=== PATIENT | female | born 1960 | race Caucasian/White ===

== ENCOUNTER 2016-08-07 11:50 | Emergency (ER) | payer OTHER ==
--- NOTE | ~2016-08-07 | CT4 ---
[facility] A Service [facility] RADIOLOGY TEXT RESULTS PATIENT: KATIA CHAVEZ LOCATION: [facility] : 58 UNIT #: [id number] AGE: [address]: OLAMIDE OLIVA MD SEX: F ORDER DR: [id number] [place] [id number] MR#: [id number] Acc #: [id number] NAME: KATIA CHAVEZ : 1960 SEX: F STUDY DATE/TIME: 08/07/2016 12:58 UNIT: [facility] ROOM: [facility] STUDY DESCRIPTION: CT Abd and Pelv Wo Cont Attending Physician: Olamide Oliva M.D. Ordering Physician: Chan Quinones M.D. Primary Care Physician: Jyoti Moore M.D. MEDICAL IMAGING REPORT This report is preliminary unless electronic signature is present. EXAM CT abdomen and pelvis no contrast 08/08/2015 CLINICAL HISTORY Nausea and diarrhea for 3 days. PROCEDURE Axial unenhanced CT abdomen and pelvis with multiplanar reformats. This CT exam was performed with one or more of the following radiation dose reduction techniques: automatic exposure control, adjustment of mA and/or kV according to patient size, and iterative reconstruction. COMPARISON None. FINDINGS The lung bases are unremarkable. ABDOMEN: There is fatty infiltration of the liver and the gallbladder has been removed. The spleen and pancreas are normal. The kidneys and adrenal glands are normal and the aorta is normal in caliber. There is no nephro- or ureterolithiasis or hydronephrosis. There is no bowel or biliary obstruction. PELVIS: There is no pelvic mass. There is limited diverticulosis but no evidence of diverticulitis. The appendix is normal. IMPRESSION 1. Negative CT abdomen and pelvis. Fatty infiltration of the liver, status post cholecystectomy. No renal or bowel or biliary obstruction or acute abnormality. 2. Normal appendix. [facility] A Service [facility] RADIOLOGY TEXT RESULTS PATIENT: KATIA CHAVEZ LOCATION: [facility] : 58 UNIT #: [id number] AGE: [address]: OLAMIDE OLIVA MD SEX: F ORDER DR: 3. Limited diverticulosis without evidence of diverticulitis. Dictated by... Jose Staples M.D. THIS IS AN ELECTRONICALLY VERIFIED REPORT Jose Staples M.D. at 08/07/2016 3:36 PM TEV/aa TD: 08/07/2016 15:04 JOB #: [id number] MEDICAL IMAGING REPORT Page 1 of 1
[~2016-08-07 11:50] MED LIST: AMITRIPTYLINE H50 MG PO; AMITRYPTYLINE PO; ATENOLOL50 MG PO; CALCIUM 600 +1 EAC3 PO; CLONIDINE PO; CRESTOR10 MG PO; DEMEROL50 MG PO; DILTIAZEM 24HR180 M1 PO; DIOVAN80 M1 PO; DOCUSATE; EFFEXOR XR PO; EFFEXOR XR150 MG PO; FLEXERIL10 MG PO; FUROSEMIDE40 MG PO; GABAPENTIN400 MG PO; HTN MED; IRON; KAPIDEX60 MG PO; KLOR-CON PO; LEVAQUIN750 MG PO; NEXIUM PO; OMEPRAZOLE40 M1 PO; OXYCODON-ACETA1 EAC1 PO; PHENERGAN25 MG PO; PRAMIPEXOLE DI0.5 MG PO; TEKTURNA; TOPROL XL50 MG PO; VALSARTAN80 MG PO; VENLAFAXINE HC150 MG PO; VICODIN 5/500 T1 TAB PO; VICODIN PO; VITAMIN D/CALCIUM; ZEGERID40 MG/PKT PO
[2016-08-07 12:28] LABS: BASOPHIL% 0.2 % (0-2.5); EOSINOPHIL# 0.3 X10e3 (0-0.7); EOSINOPHIL% 2.2 % (0.0-7.0); HEMATOCRIT 39.9 % (35.0-45.0); LYMPHOCYTE# 2.7 X10e3 (1.0-3.5); LYMPHOCYTE% 23.4 % (17.0-45.0); MEAN CELL VOLUME 91.6 FL (83-96); MEAN CORPUSCULAR HEMOGLOBIN 29.9 PG (28-34); MEAN CORPUSCULAR HGB CONC 32.7 g/dL (30-36); MONOCYTE% 8.7 % (3.0-12.0); NEUTROPHIL# 7.6 X10e3 (1.5-7.1); NEUTROPHIL% 65.5 % (40-75); PLATELET COUNT 287 X10e3 (140-420); RED BLOOD COUNT 4.36 X10e (3.90-5.30); RED CELL DISTRIBUTION WIDTH 14.7 % (11.0-15.5); WHITE BLOOD COUNT 11.5 X10e3 (4.0-10.5)
[2016-08-07 12:34] LABS: DIFF IND NO
[2016-08-07 12:41] LABS: ALBUMIN SERUM 4.1 g/dL (3.5-5.0); BILIRUBIN, DIRECT 0.1 mg/dL (0.0-0.2); BILIRUBIN,INDIRECT 0.5 mg/dL (0.0-0.9); BILIRUBIN,TOTAL 0.6 mg/dL (0.2-2.0); CALCIUM SERUM 8.4 mg/dL (8.4-10.2); GLOM FILT RATE Estimated 27.2 mL/min (>60); POTASSIUM 4.1 mmol/L (3.5-5.1); PROTEIN TOTAL SERUM 7.9 g/dL (6.0-8.3)
[2016-08-07 14:07] LABS: URINE SOURCE CLEAN CATCH
[2016-08-07 14:10] LABS: URINE APPEARANCE HAZY; URINE BILIRUBIN POS (NEG); URINE BLOOD TRACE-LYSED (NEG); URINE COLOR YELLOW; URINE GLUCOSE NEG (NORM); URINE KETONE NEG (NEG); URINE LEUKOCYTE ESTERASE TRACE (NEG); URINE NITRATE NEG (NEG); URINE PROTEIN TRACE (NEG); URINE SPECIFIC GRAVITY >=1.030 (1.003-1.035); URINE UROBILINOGEN 0.2 MG/DL (NORM)
[2016-08-07 14:11] LABS: MICRO INDICATED? YES
[2016-08-07 14:25] LABS: CULTURE INDICATED? YES; URINE BACTERIA 1+ (NEG); URINE SQUAMOUS EPITHELIAL CELL MANY /[HPF]
[2016-08-07 14:26] LABS: URINE MUCUS PRESENT
== END 2016-08-07 20:28 ==
LOC: SED 11:50
PROVIDERS: Emergency Medicine
DX: E86.0 Dehydration (principal); N28.9 Disorder of kidney and ureter, unspecified; E87.1 Hypo-osmolality and hyponatremia; N39.0 Urinary tract infection, site not specified; R11.0 Nausea; R19.7 Diarrhea, unspecified; K57.90 Diverticulosis of intestine, part unspecified, without perforation or abscess without bleeding; I10 Essential (primary) hypertension; Z86.73 Personal history of transient ischemic attack (TIA), and cerebral infarction without residual deficits; Z85.3 Personal history of malignant neoplasm of breast; Z90.710 Acquired absence of both cervix and uterus
CPT/HCPCS: 36415; 74176; 80048; 80076; 81003; 82150; 83690; 85025; 87086; 96361; 96374; 96375; 99285; J0456; J0696; J1170; J2405

== ENCOUNTER → 2016-12-03 | Outpatient (CLI) | payer OTHER ==
--- NOTE | ~2016-12-03 | MY28 ---
[facility] A Service of [facility] RADIOLOGY TEXT RESULTS PATIENT: KATIA CHAVEZ LOCATION: [facility] : 58 UNIT #: [id number] AGE: [address]: Ten Kelley MD SEX: F ORDER DR: [id number] [facility] [address] [place], [place] [address] [id number] O MR#: [id number] Acc #: [id number] NAME: KATIA CHAVEZ : 1960 SEX: F STUDY DATE/TIME: 12/03/2016 14:24 UNIT: [facility] ROOM: STUDY DESCRIPTION: MY CARLYN SCREEN W/ CAD UNI RT Attending Physician: Ten Kelley M.D. Referring Physician: Mehnaz Talbert Aprn Ordering Physician: Ten Kelley M.D. Primary Care Physician: Jyoti Moore M.D. MEDICAL IMAGING REPORT This report is preliminary unless electronic signature is present EXAM Right breast digital screening mammogram with CAD DATE 12/03/2016 HISTORY History of left breast cancer with lumpectomy. History of right breast reduction. No current complaints. Family history of breast cancer (relative not designated on history sheet). COMPARISON Bilateral screening mammogram 05/07/2015, 03/20/2014. FINDINGS CC and MLO views were obtained of the right breast utilizing digital technique and reviewed with an FDA-approved CAD device. The breast parenchyma is predominantly fatty replaced. No suspicious nodule, architectural distortion or clustered microcalcification is seen. Left mastectomy. IMPRESSION BIRADS 2. Benign findings. No findings suspicious for malignancy in the right breast. Left mastectomy. Routine right breast screening mammogram is recommended in one year. Patients over the age of 40 are entered into a reminder system with target due date for the next mammogram. A result letter will also be sent to the patient. BIRADS: 2 Benign Finding [facility] A Service [facility] RADIOLOGY TEXT RESULTS PATIENT: KATIA CHAVEZ LOCATION: [facility] : 58 UNIT #: [id number] AGE: [address]: Ten Kelley MD SEX: F ORDER DR: Dictated by... Divya Reyez M.D. THIS IS AN ELECTRONICALLY VERIFIED REPORT Divya Reyez M.D. at 12/08/2016 3:27 PM [facility]/richard TD: 12/04/2016 13:56 JOB #: [id number] MEDICAL IMAGING REPORT Page 1 of 1 COPY
== END | disposition home or self-care (01) ==
LOC: CWCC 13:45
DX: Z12.31 Encounter for screening mammogram for malignant neoplasm of breast (principal); Z85.3 Personal history of malignant neoplasm of breast; Z80.3 Family history of malignant neoplasm of breast; Z90.12 Acquired absence of left breast and nipple
CPT/HCPCS: G0202